=== PATIENT | female | born 1960 | race Caucasian/White ===

== ENCOUNTER 2018-01-26 09:58 | Emergency (ER) | payer BC ==
[~2018-01-26] VITALS: Ht 172.7 cm; Wt 72.6 kg
--- NOTE | ~2018-01-26 | EKG ---
[address] [address] ELECTROCARDIOGRAM REPORT Name: ISABEL WALTON Room #: [facility] [id number] Admission: 01/26/18 Attend Phys: Discharge: 01/26/18 Date of : 62 Report #: [id number] THIS REPORT FOR: //name// [facility] ED Test Date: 2018-01-26 Test Time: 10:01:39 Pat Name: ISABEL WALTON Department: Room: Gender: F Hand Sprayer: Martell GONZALEZ RN : 1960 Requested By: Lorenzo Fritz Order Number: [id number] MD: Travon Gibson Measurements Intervals [place] Rate: 57 P: 1 MA: 171 QRS: 47 QRSD: 99 T: 33 QT: 443 QTc: 432 Interpretive Statements Sinus bradycardia Otherwise normal tracing No previous ECG available for comparison Electronically Signed On 01-26-2018 15:37:52 CDT by Travon Gibson [email or web address] <ELECTRONICALLY SIGNED> By: Travon Gibson MD, [facility] 01/26/18 1537 1001 1001 Travon Gibson MD, FACC /EPI
[2018-01-26 10:17] LABS: ABSOLUTE NEUTROPHILS 2.6 thou/uL (1.4-8.2); BASOPHILS 0.5 % (0.0-2.0); EOSINOPHILS 1.4 % (0.0-3.0); HEMATOCRIT 38.9 % (37.0-47.0); HEMOGLOBIN 13.1 gm/dL (12.0-15.0); LYMPHOCYTES 32.5 % (24.0-44.0); MCH 30.1 pg (26.0-34.0); MCHC 33.8 g/dL (28.0-37.0); MCV 89.2 fL (80.0-100.0); MONOCYTES 8.4 % (1.0-8.0); PLATELET COUNT 242 thou/uL (150-400); POLYS 57.2 % (36.0-66.0); RBC 4.36 mil/uL (4.20-5.00); RDW 14.2 % (10.5-14.5); WBC 4.5 thou/uL (4.0-11.0)
[2018-01-26 10:20] LABS: ANION GAP 9 mmol/L (7-16); BUN 15 mg/dL (7-18); CALCIUM 9.1 mg/dL (8.5-10.1); CHLORIDE 104 mmol/L (98-107); CO2 28 mmol/L (21-32); CREATININE 0.8 mg/dL (0.6-1.0); GLUCOSE 101 mg/dL (74-106); POTASSIUM 3.4 mmol/L (3.5-5.1); SODIUM 141 mmol/L (136-145)
[2018-01-26 10:29] LABS: TROPONIN-I < 0.04 ng/mL (<0.06)
[2018-01-26 11:33] VITALS: BP 137/66
== END 2018-01-26 11:34 | disposition home or self-care (01) ==
LOC: ER 09:58
PROVIDERS: Emergency Medicine
DX: R07.89 Other chest pain (principal)